=== PATIENT | male | born 1935 | race Caucasian/White ===

== ENCOUNTER 2017-07-08 07:51 | Day surgery (SDC) | payer OTHER, MEDICARE ==
[2017-07-07 14:32] VITALS: BMI 29.2
[2017-07-08 09:31] VITALS: TEMP 97.5
[2017-07-08 14:12] VITALS: BP 125/66; PULSE 61
== END 2017-07-08 10:20 | disposition home or self-care (01) ==
LOC: JASU-ENDO 07:51
PROVIDERS: ATTEND Internal Medicine Gastroenterology
PROC: 0DBP8ZX Excision of Rectum, Via Natural or Artificial Opening Endoscopic, Diagnostic (ICD-10-PCS; principal; 2017-07-08)
PROC: 0DBL8ZX Excision of Transverse Colon, Via Natural or Artificial Opening Endoscopic, Diagnostic (ICD-10-PCS; 2017-07-08)
DX: K57.30 Diverticulosis of large intestine without perforation or abscess without bleeding (principal)
CPT/HCPCS: 88305-TC

== ENCOUNTER 2020-03-29 12:58 | Emergency (ER) | payer OTHER, MEDICARE ==
[2020-03-29 13:45] VITALS: BMI 29.0
[2020-03-29] MEDS ORDERED: BAMLANIVIMAB 700 MG in SODIUM CHLORIDE 180 ML IVPB ONE (14:07)
[2020-03-29] MEDS ORDERED: ACETAMINOPHEN 500 MG TABLET (FP) PO ONE (16:35)
[2020-03-29] MEDS ORDERED: ACETAMINOPHEN 500 MG TABLET (FP) ONE (16:38)
[2020-03-29 18:35] VITALS: BP 139/75; PULSE 60; TEMP 98.9
== END 2020-03-29 18:34 | disposition home or self-care (01) ==
LOC: JER 12:58
DX: U07.1 COVID-19 (principal)
CPT/HCPCS: 99284-25; M0239; Q0239

== ENCOUNTER 2022-08-11 04:19 | Day surgery (SDC) | payer OTHER, MEDICARE ==
[2022-08-06 09:04] VITALS: BMI 29.9
[2022-08-11 08:26] VITALS: TEMP 97.8
[2022-08-11 09:30] VITALS: BP 120/75; PULSE 62; RESP 17
== END 2022-08-11 09:10 | disposition home or self-care (01) ==
LOC: JASU-ENDO 04:19
PROVIDERS: ATTEND Internal Medicine Gastroenterology
PROC: 0DBL8ZX Excision of Transverse Colon, Via Natural or Artificial Opening Endoscopic, Diagnostic (ICD-10-PCS; 2022-08-11)
PROC: 0DBP8ZX Excision of Rectum, Via Natural or Artificial Opening Endoscopic, Diagnostic (ICD-10-PCS; principal; 2022-08-11 08:00)
DX: Z12.11 Encounter for screening for malignant neoplasm of colon (principal); D12.3 Benign neoplasm of transverse colon; D12.8 Benign neoplasm of rectum; K64.8 Other hemorrhoids; K57.30 Diverticulosis of large intestine without perforation or abscess without bleeding; Z86.010 Personal history of colon polyps; I10 Essential (primary) hypertension
CPT/HCPCS: 88305-TC

== ENCOUNTER 2023-09-26 13:00 | Emergency (ER) | payer OTHER, MEDICARE ==
[2023-09-26 13:07] VITALS: BP 153/66; PULSE 66; RESP 18; TEMP 98; BMI 28.5
== END 2023-09-26 15:23 | disposition home or self-care (01) ==
LOC: FER 13:00
DX: M79.662 Pain in left lower leg (principal); M79.89 Other specified soft tissue disorders
CPT/HCPCS: 93971-TC; 99284-25

== ENCOUNTER 2023-09-27 14:30 | Emergency (ER) | payer OTHER, MEDICARE ==
[2023-09-27 14:48] VITALS: BP 145/81; PULSE 67; RESP 18; TEMP 97.8; BMI 28.5
== END 2023-09-27 14:55 | disposition home or self-care (01) ==
LOC: FER 14:30
DX: M79.605 Pain in left leg (principal); R60.9 Edema, unspecified
CPT/HCPCS: 99282-25